=== PATIENT | male | born 1960 | race Caucasian/White ===

== ENCOUNTER → 2016-11-01 | Outpatient (CLI) | payer MEDICARE, MEDICAID ==
[~2016-11-01] MED LIST: 8 HOUR650 MG PO; ACTOPLUS MET 11 EAC1 PO; AMBIEN10 MG PO; ARTIFICIAL TEAR15 ML OPHTH; ASPIRIN LO-DOSE81 MG PO; AYR50 ML NOSE; CELEXA20 MG PO; CLEOCIN150 MG; COREG 3.1253.125 MG PO; COUMADIN ** IA5 MG PO; COUMADIN **IA10 MG PO; DELTASONE10 MG PO; DESYREL50 MG PO; FLEXERIL10 MG PO; FLOMAX0.4 MG PO; GLUCOPHAGE850 MG PO; IMDUR60 MG PO; ISORDIL10 MG PO; LASIX40 MG PO; LEVEMIR100 UNIT/1 SUB-Q; LIPITOR80 MG PO; LOMOTIL1 TAB PO; LOPRESSOR25 MG PO; NEURONTIN300 MG PO; NITROGLYCERIN0.2 MG TRANS; NITROSTAT0.4 MG SL; NORCO 10-325 T1 EACH PO; NOVOLOG100 UNIT/M SUB-Q; PIOGLITAZONE-M1 EACH PO; PLAVIX75 MG PO; PROTONIX40 MG PO; RANEXA ER500 MG PO; RANEXA1000 MG PO; THERAGRAN-M1 TAB PO; TOPROL XL25 MG PO; TRESIBA FL100 UNIT/1 SUB-Q; TRESIBA U SUB-Q; TRICOR145 MG PO; TUMS REGULAR ST1 TAB PO; TYLENOL325 MG PO; VALIUM5 MG PO; VASCEPA1 GM PO; VASOTEC2.5 MG PO; VICTOZA 3-0.6 MG/0.1 SUB-Q; XARELTO20 MG PO; ZETIA10 MG PO; [UNRECOGNIZED DRUG - OTHER] SUB-Q
== END | disposition disaster alternative care site (69) ==
LOC: GAIR 13:08
DX: I63.9 Cerebral infarction, unspecified (principal); I49.9 Cardiac arrhythmia, unspecified; I10 Essential (primary) hypertension; E11.9 Type 2 diabetes mellitus without complications; E78.5 Hyperlipidemia, unspecified; Z95.1 Presence of aortocoronary bypass graft; Z79.899 Other long term (current) drug therapy; Z79.82 Long term (current) use of aspirin
CPT/HCPCS: A0422; A0431; A0436